=== PATIENT | male | born 2000 | race Caucasian/White ===

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

== ENCOUNTER 2022-06-07 15:32 | Emergency (ER) | payer OTHER ==
[~2022-06-07] VITALS: Ht 185.4 cm; Wt 75.0 kg
[2022-06-07 15:37] VITALS: BP 120/78
[2022-06-07] MEDS ORDERED: CYCLOBENZAPRINE HCL 10 MG TABLET PO ONE (16:15)
[2022-06-07] MEDS ORDERED: KETOROLAC TROMETHAMINE 30 MG/ML VIAL IM ONE (16:15)
[2022-06-07] MEDS ORDERED: LIDOCAINE 5% TRANSDERMAL PATCH TD ONE (16:15)
[2022-06-07] MEDS ORDERED: CYCL-448 PO (17:08)
[2022-06-07] MEDS ORDERED: IBUP-2070 PO (17:08)
== END 2022-06-07 17:16 | disposition home or self-care (01) ==
LOC: EMS 15:32
DX: M54.50 Low back pain, unspecified (principal); F17.210 Nicotine dependence, cigarettes, uncomplicated; F12.90 Cannabis use, unspecified, uncomplicated
CPT/HCPCS: 99283; 96372; J1885